=== PATIENT | male | born 1995 | race Caucasian/White ===

== ENCOUNTER 2017-08-26 00:25 | Emergency (ER) | payer OTHER ==
[~2017-08-26] VITALS: Ht 180.3 cm; Wt 74.4 kg
[2017-08-26] MEDS ORDERED: NKM (00:35)
[2017-08-26] MEDS ORDERED: Lidocaine 1% MPF 10mg/ml 5ml INJ ONE (01:00)
[2017-08-26] MEDS ORDERED: Bacitracin Oint UD TOPIC ONE (01:00)
--- NOTE | 2017-08-26 01:11 | Emergency Room Report ---
History of Present Illness General Chief Complaint: Laceration Source: Patient Present Illness HPI The patient presents with a laceration over his right ring finger proximal knuckle. He was pounding a stake and the knife bounced and sliced into his right hand. Bleeding was was controlled easily. He's able to move his fingers without difficulty. Pain is minimal and he does not want any medication for pain. His tetanus was 2015. No numbness. R handed. No medical problems. Denies fever. Allergies: Coded Allergies: No Known Allergies (Unverified , 08/26/17) Patient History Social History: Denies: smoking - former Social History Narrative commercial lines account executive at [employer] Reviewed Nursing Documentation: PMH: Agreed; PSxH: Agreed Nursing Documentation-PMH Past Medical History: No History, Except For Hx Gastrointestinal Problems: Yes - Gastritis Review of Systems Constitutional: Denies: fever Respiratory: Denies: cough Cardiovascular: Denies: chest pain Gastrointestinal: Denies: abdominal pain Musculoskeletal: Reports: see HPI Skin: Reports: see HPI Neurological: Denies: headache Physical Exam Vital Signs Date Time Temp Pulse Resp B/P (MAP) Pulse Ox O2 Delivery O2 Flow Rate FiO2 08/26/17 00:31 99.3 76 16 139/72 97 Room Air 99.3 Sp02 EP Interpretation: reviewed, normal General Appearance: well appearing, no apparent distress Head: normocephalic, atraumatic Eyes: bilateral eye normal inspection ENT: hearing grossly normal, normal voice, moist mucus membranes Neck: full range of motion, supple Respiratory: no respiratory distress, speaking full sentences Gastrointestinal: normal inspection Musculoskeletal: digits/nails normal, normal range of motion - with good extensor strength Neurologic: alert, motor strength/tone normal, sensory intact Psychiatric: mood/affect normal Skin: laceration - 1.5 cm R MCP area dorsal ring finger Procedures Laceration/Wound Repair Laceration/Wound Repair : Consent: Verbal Wound Location: upper extremity Wound's Depth, Shape: superficial - not involving tendon, linear Wound Length (cm): 1 - 1.5 Wound Explored: clean Irrigated w/ Saline (ccs): 10 Betadine Prep?: Yes Anesthesia: 1% Lidocaine Volume Anesthetic (ccs): 0 - 0.5 Wound Debrided: none Wound Repaired With: sutures Suture Size/Type: 5:0 Layer Closure?: No Sterile Dressing Applied?: Yes Splint Applied?: No Patient Tolerated: Well Complications: None Medical Decision Making Diagnostic Impression: Primary Impression: Laceration of right hand Qualified Codes: S61.411A - Laceration without foreign body of right hand, initial encounter ER Course Patient with laceration MCP R hand. DDx: tendon lac, superficial lac. Needs exam after anesthetic and sutures. Tetanus UTD. Sutured. Tolerated well. Discussed treatment plan and work status. Patient stable for outpatient observation and treatment. Last Vital Signs Date Time Temp Pulse Resp B/P (MAP) Pulse Ox O2 Delivery O2 Flow Rate FiO2 08/26/17 01:25 0/0 08/26/17 00:31 99.3 76 16 97 Room Air 99.3 Status: improved Disposition: HOME, SELF-CARE Condition: Improved Scripts Bacitracin (Bacitracin) 28.4 Gm Oint...g. 1 APPLIC TOPIC BID, #10 GM Prov: Avi Wong M.D. 08/26/17 Avi Wong M.D. Aug 26, 2017 01:11
[2017-08-26 01:15] VITALS: BP 0/0
[2017-08-26] MEDS ORDERED: BACITRACIN15 GM TOPIC (01:15)
[2017-08-26 01:25] VITALS: BP 0/0
== END 2017-08-26 01:25 | disposition home or self-care (01) ==
LOC: EMR 00:40
DX: S61.214A Laceration without foreign body of right ring finger without damage to nail, initial encounter (principal); W26.0XXA Contact with knife, initial encounter; Y92.511 Restaurant or cafe as the place of occurrence of the external cause; Y99.0 Civilian activity done for income or pay
CPT/HCPCS: 99283